=== PATIENT | female | born 1970 | race Caucasian/White ===

== ENCOUNTER 2017-11-14 05:03 | Day surgery (SDC) | payer OTHER ==
[2017-11-11 14:00] VITALS: BMI 26.4
[2017-11-14] MEDS ORDERED: ePHEDrine SULFATE 50 MG/1 ML AMPULE ONE (07:30)
[2017-11-14] MEDS ORDERED: SUCCINYLCHOLINE CHLORIDE 200 MG/10 ML VIAL ONE (07:31)
[2017-11-14] MEDS ORDERED: MIDAZOLAM HCL 2 MG/2 ML SINGLE DOSE VIAL ONE (07:31)
[2017-11-14] MEDS ORDERED: PROPOFOL 20 ML ONE ×5 (07:31)
[2017-11-14] MEDS ORDERED: ceFAZolin SODIUM 1 GM VIAL ONE (07:34)
[2017-11-14] MEDS ORDERED: DEXAMETHASONE SOD PHOSPHATE 4 MG/1 ML VIAL ONE (07:34)
[2017-11-14] MEDS ORDERED: KETOROLAC TROMETHAMINE 30 MG/1 ML VIAL ONE (07:34)
[2017-11-14] MEDS ORDERED: ONDANSETRON 4 MG/2 ML VIAL IVPUSH PRN (08:34)
[2017-11-14] MEDS ORDERED: oxyCODONE HCL 5 MG TABLET PO PRN (08:34)
[2017-11-14] MEDS ORDERED: LACTATED RINGERS SOLUTION 1,000 ML IV SCH (08:45)
--- NOTE | 2017-11-14 09:58 | HP ---
Admitting History and Physical - Admission Chief Complaint: Prolonged and heavy menses History of Present Illness: 47 yo with history of prolonged and heavy menses is Pre op for endometrial ablation. History Source: Patient Limitations to Obtaining History: No Limitations - Past Medical History ...LMP: 11/04/17 ...: No - Past Surgical History Past Surgical History: Yes: None - Smoking History Smoking history: Never smoked Have you smoked in the past 12 months: No - Alcohol/Substance Use Hx Alcohol Use: Yes (occassional) History of Substance Use: reports: None - Social History Usual Living Arrangement: Yes: Alone History of Recent Travel: No Home Medications - Allergies Allergies/Adverse Reactions: Allergies Allergy/AdvReac Type Severity Reaction Status Date / Time No Known Allergies Allergy Verified 11/14/17 06:08 - Home Medications Home Medications: Ambulatory Orders NK [No Known Home Medication] 11/11/17 Family Disease History - Family Disease History Family History: Unremarkable Review of Systems - Review of Systems Constitutional: reports: No Symptoms Eyes: reports: No Symptoms HENT: reports: No Symptoms Neck: reports: No Symptoms Cardiovascular: reports: No Symptoms Respiratory: reports: No Symptoms Gastrointestinal: reports: No Symptoms Genitourinary: reports: Vaginal Bleeding Breasts: reports: No Symptoms Reported Musculoskeletal: reports: No Symptoms Integumentary: reports: No Symptoms Neurological: reports: No Symptoms Endocrine: reports: No Symptoms Hematology/Lymphatic: reports: No Symptoms Psychiatric: reports: No Symptoms Pain Intensity: 0 Physical Examination Vital Signs: Vital Signs Temperature 97.7 F 11/14/17 09:11 Pulse Rate 66 11/14/17 09:25 Respiratory Rate 15 11/14/17 09:25 Blood Pressure 118/79 11/14/17 09:25 O2 Sat by Pulse Oximetry (%) 99 11/14/17 09:25 Constitutional: Yes: Well Nourished Eyes: Yes: Conjunctiva Clear HENT: Yes: Atraumatic Neck: Yes: Supple Cardiovascular: Yes: Regular Rate and Rhythm Respiratory: Yes: Regular Gastrointestinal: Yes: Normal Bowel Sounds Musculoskeletal: Yes: WNL Extremities: Yes: WNL Neurological: Yes: Alert, Oriented ...Motor Strength: WNL Psychiatric: Yes: Alert, Oriented Assessment/Plan Menorrhagia Pre op for endometrial ablation Consent signed Anesthesia to see patient
--- NOTE | 2017-11-14 09:59 | OP ---
Operative Note - Note: Operative Date: 11/14/17 Pre-Operative Diagnosis: Menorrhagia Operation: Hysteroscopic endometrial ablation Post-Operative Diagnosis: Same as Pre-op Surgeon: Leonora Betancourt Anesthesia: General Specimens Removed: None Estimated Blood Loss (mls): 20
[2017-11-14 10:56] VITALS: TEMP 97.8
[2017-11-14] MEDS ORDERED: oxyCODONE HCL 5 MG TABLET ONE (11:21)
[2017-11-14] MEDS ORDERED: ONDANSETRON 4 MG/2 ML VIAL ONE (11:25)
[2017-11-14 14:00] VITALS: BP 121/75; PULSE 84
== END 2017-11-14 13:30 | disposition home or self-care (01) ==
LOC: JASU-SURG 05:03
PROVIDERS: ATTEND Obstetrics & Gynecology
PROC: 0U5B8ZZ Destruction of Endometrium, Via Natural or Artificial Opening Endoscopic (ICD-10-PCS; principal; 2017-11-14 08:00)
DX: N92.0 Excessive and frequent menstruation with regular cycle (principal)
CPT/HCPCS: 94760

== ENCOUNTER 2017-12-15 09:50 | Emergency (ER) | payer OTHER ==
[2017-12-15 09:59] VITALS: BP 150/78; PULSE 76; TEMP 97.8; BMI 27.9
--- NOTE | 2017-12-15 10:19 | PDOC ---
History of Present Illness - General Chief Complaint: Sore Throat Stated Complaint: SORE THROAT Time Seen by Provider: 12/15/17 10:05 History Source: Patient Exam Limitations: No Limitations - History of Present Illness Initial Comments: 12/15/17 13:11 47-year-old female presents to the emergency department complaining of sore throat 2 weeks. Pain is described as 3/10 dull nonradiating intermittent discomfort. Patient states she is able to eat and drink without any difficulties and denies fever, chills, nausea/vomiting, rhinorrhea, nasal congestion, facial pain, earache, difficulty swallowing, chest pain, shortness of breath, abdominal discomfort. Past History - Past Medical History Allergies/Adverse Reactions: Allergies Allergy/AdvReac Type Severity Reaction Status Date / Time No Known Allergies Allergy Verified 12/15/17 09:56 Home Medications: Ambulatory Orders NK [No Known Home Medication] 11/11/17 COPD: No - Suicide/Smoking/Psychosocial Hx Smoking History: Never smoked Have you smoked in the past 12 months: No Information on smoking cessation initiated: No Hx Alcohol Use: No Drug/Substance Use Hx: No Substance Use Type: None Hx Substance Use Treatment: No Review of Systems - Review of Systems Able to Perform ROS?: Yes Comments:: 12/15/17 13:07 CONSTITUTIONAL: Absent: fever, chills, diaphoresis, generalized weakness, malaise, loss of appetite HEENT: +throat pain Absent: rhinorrhea, nasal congestion, throat swelling, difficulty swallowing, mouth swelling, ear pain, eye pain, visual Changes CARDIOVASCULAR: Absent: chest pain, loss of consciousness, palpitations, irregular heart rate, peripheral edema RESPIRATORY: Absent: cough, shortness of breath, dyspnea with exertion, orthopnea, wheezing, stridor, hemoptysis GASTROINTESTINAL: Absent: abdominal pain, abdominal distension, nausea, vomiting, diarrhea, constipation, melena, hematochezia GENITOURINARY: Absent: dysuria, frequency, urgency, hesitancy, hematuria, flank pain, genital pain MUSCULOSKELETAL: Absent: myalgia, arthralgia, joint swelling SKIN: Absent: rash, itching, pallor Is the patient limited Welsh proficient: No *Physical Exam - Vital Signs Last Vital Signs Temp Pulse Resp BP Pulse Ox 97.8 F 76 14 150/78 100 12/15/17 09:56 12/15/17 09:56 12/15/17 09:56 12/15/17 09:56 12/15/17 09:56 - Physical Exam Comments: 12/15/17 13:08 GENERAL: Well developed, well nourished. Awake and alert. No acute distress. HEENT: Normocephalic, atraumatic. PERRLA, EOMI. No conjunctival pallor. Sclera are non- icteric. Moist mucous membranes. Oropharynx is clear. NECK: Supple. Full ROM. No JVD. Carotid pulses 2+ and symmetric, without bruits. No thyromegaly. No lymphadenopathy. CARDIOVASCULAR: Regular rate and rhythm. No murmurs, rubs, or gallops. Distal pulses are 2+ and symmetric. PULMONARY: No evidence of respiratory distress. Lungs clear to auscultation bilaterally. No wheezing, rales or rhonchi. ABDOMINAL: Soft. Non-tender. Non-distended. No rebound or guarding. No organomegaly. Normoactive bowel sounds. MUSCULOSKELETAL Normal range of motion at all joints. No bony deformities or tenderness. No CVA tenderness. EXTREMITIES: No cyanosis. No clubbing. No edema. No calf tenderness. SKIN: Warm and dry. Normal capillary refill. No rashes. No jaundice. *DC/Admit/Observation/Transfer Diagnosis at time of Disposition: Viral pharyngitis - Discharge Dispostion Disposition: HOME Condition at time of disposition: Stable Admit: No - Referrals Referrals: Horacio Moreno MD [Staff Physician] - - Patient Instructions Printed Discharge Instructions: DI for Viral Pharyngitis Additional Instructions: Increase fluids Tylenol alternating with Motrin as needed for pain Follow-up with the ENT doctor/Dr. Moreno listed on your discharge Return back to the emergency department for severe/persistent or worsening symptoms - Post Discharge Activity
== END 2017-12-15 11:03 | disposition home or self-care (01) ==
LOC: JER 09:50 → JERFT 09:50
DX: J02.9 Acute pharyngitis, unspecified (principal); B97.89 Other viral agents as the cause of diseases classified elsewhere
CPT/HCPCS: 87070; 87430; 99281-25

== ENCOUNTER 2022-09-23 10:58 | Emergency (ER) | payer OTHER ==
[2022-09-23 11:11] VITALS: BP 130/90; PULSE 69; RESP 18; TEMP 97.8; BMI 31.1
== END 2022-09-23 11:56 | disposition home or self-care (01) ==
LOC: JER 10:58 → JERFT 10:58
DX: M54.50 Low back pain, unspecified (principal)
CPT/HCPCS: 99281-25